=== PATIENT | female | born 1960 | race Caucasian/White ===

== ENCOUNTER → 2016-08-09 | Outpatient (REF) | payer BC, MEDICAID ==
[~2016-08-09] MED LIST: ACET30TAB PO
== END ==
LOC: M SMT 17:03
PROVIDERS: ATTEND Specialist
DX: R31.9 Hematuria, unspecified (principal)

== ENCOUNTER → 2016-10-25 | Outpatient (CLI) | payer BC, MEDICAID, OTHER ==
--- NOTE | 2016-10-25 11:19 | REP ---
CERVICAL SPINE, EIGHT VIEWS: HISTORY: Radiculopathy. There is no acute fracture or subluxation. The C4-5 through C6-7 intervertebral discs are decreased in height consistent with disc degeneration. Osteophytes are present on C4-7. There is narrowing of the C5 and 6 neural foramina secondary to uncinate process hypertrophy. There is loss of the normal lordotic curve. IMPRESSION: Degenerative change as described above. Signed by Ulices Santillan MD 10/25/2016 11:24 A
--- NOTE | 2016-10-25 11:21 | REP ---
Chest two views HISTORY: Abnormal EKG Comparison: 12/04/2012 A small ill-defined parenchymal density is present in the left lower lobe. The right lung is clear. The heart is normal in size. The pulmonary vasculature is normal in appearance. There are old right rib fractures. Degenerative changes present in the thoracic spine. IMPRESSION: There is a small ill-defined parenchymal density in the left lower lobe. This may represent a calcified granuloma, however , CT of the chest is recommended for further evaluation. Signed by Ulices Santillan MD 10/25/2016 11:12 A
--- NOTE | 2016-10-25 11:29 | REP ---
BILATERAL HIPS, PELVIS, FIVE VIEWS: HISTORY: Left hip pain. There is no acute fracture or dislocation. There is narrowing of the joint spaces with associated sclerosis. IMPRESSION: Degenerative change as described above. Signed by Ulices Santillan MD 10/25/2016 11:30 A
== END ==
LOC: M LRY 09:25
PROVIDERS: ATTEND Family Medicine
DX: M54.12 Radiculopathy, cervical region (principal); M25.552 Pain in left hip; M54.5 Low back pain

== ENCOUNTER → 2016-10-25 | Outpatient (REF) | payer BC, MEDICAID, OTHER | LOC: M SMT 17:11 | PROVIDERS: ATTEND Specialist | DX: Z85.51 Personal history of malignant neoplasm of bladder (principal) ==

== ENCOUNTER → 2016-11-23 | Outpatient (REF) | payer OTHER ==
[2016-11-23 13:23] LABS: FREE T4 1.69 NG/DL (0.76-1.46)
== END ==
LOC: M SFHCLERA 09:17
PROVIDERS: ATTEND Family Medicine
DX: E03.9 Hypothyroidism, unspecified (principal)

== ENCOUNTER → 2016-11-24 | Outpatient (CLI) | payer OTHER ==
--- NOTE | 2016-11-24 09:25 | REP ---
MR CERVICAL SPINE WITHOUT CONTRAST: HISTORY: Neck pain. A disc bulge with associated osteophyte formation is present at the C4-5 level. There is moderate effacement of the thecal sac without spinal cord compression. Bilateral uncinate process hypertrophy is present. This produces moderate narrowing of the C4 neural foramina. A disc bugle with associated osteophyte formation is present at the C5-6 level. There is minimal spinal cord compression. Bilateral uncinate process hypertrophy is present. This produces severe narrowing of the C5 neural foramina. A disc bulge with associated osteophyte formation is present at the C6-7 level. There is minimal spinal cord compression. Bilateral uncinate process hypertrophy is present. This produces moderate narrowing of the C6 neural foramina. A disc bulge and small central disc protrusion are present at the C7-T1 level. There is minimal effacement of the thecal sac without spinal cord compression. The C7 neural foramina are patent. There is no other disc bugle or herniation. The remaining neural foramina are patent. The spinal cord is normal in signal intensity. The C4-5 through C6-7 intervertebral discs are decreased in height consistent with disc degeneration. Normal signal intensity is present in the cervical vertebral bodies. IMPRESSION: There is cervical spondylosis at the C4-5 through C7-T1 levels most significant at the C5-6 and C6-7 levels where there is minimal spinal cord compression. Signed by Ulices Santillan MD 11/24/2016 09:31 A
--- NOTE | 2016-11-24 09:54 | REP ---
MR LUMBAR SPINE WITHOUT CONTRAST: HISTORY: Back pain. Decreased signal intensity on T2-weighted images is present in the L3-4 through L5-S1 intervertebral discs. The discs are decreased in height. These findings are consistent with disc degeneration. There is no disc bulge or herniation at the L1-2 level. The L1 nerves exit the neural foramina without compression. A diffuse disc bulge is present at the L2-3 level. There is hypertrophy of the ligamenta flava and posterior articulating facets. These findings produce minimal central canal stenosis. The L2 nerves exit the neural foramina without compression. A diffuse disc bulge is present at the L3-4 level. There is hypertrophy of the ligamenta flava and posterior articulating facets. These findings produce moderate central canal stenosis. The L3 nerves exit the neural foramina without compression. A diffuse disc bulge is present at the L4-5 level. There is hypertrophy of the ligamenta flava and posterior articulating facets. These findings produce moderate central canal stenosis. The L4 nerves exit the neural foramina without compression. A diffuse disc bugle is present at the L5-S1 level. There is minimal compression of the thecal sac. There is hypertrophy of the posterior articulating facets. There is compression of the left L5 nerve in the neural foramen. The right L5 nerve exits the neural foramen without compression. The conus medullaris is normal in appearance terminating at the level of the L1-2 intervertebral disc. Increased signal intensity on T2-weighted images is present in the endplates of the L3 and 4 vertebral bodies. This represents degenerative change. IMPRESSION: 1. Minimal central canal stenosis at the L2-3 level secondary to disc bulge, ligamentous, and facet hypertrophy. 2. Moderate central canal stenosis at the L3-4 and L4-5 levels secondary to disc bulge, ligamentous, and facet hypertrophy. 3. Diffuse disc bugle at the L5-S1 level with minimal thecal sac compression. There is compression of the left L5 nerve in the neural foramen. Signed by Ulices Santillan MD 11/24/2016 09:55 A
== END ==
LOC: M RAD 06:48
PROVIDERS: ATTEND Pain Medicine Interventional Pain Medicine
DX: M46.1 Sacroiliitis, not elsewhere classified (principal); M79.1 Myalgia; M54.16 Radiculopathy, lumbar region; M47.816 Spondylosis without myelopathy or radiculopathy, lumbar region; M51.37 Other intervertebral disc degeneration, lumbosacral region; M51.26 Other intervertebral disc displacement, lumbar region; M54.12 Radiculopathy, cervical region; M47.812 Spondylosis without myelopathy or radiculopathy, cervical region; M50.320 Other cervical disc degeneration, mid-cervical region, unspecified level

== ENCOUNTER → 2016-12-29 | Outpatient (CLI) | payer OTHER ==
[~2016-12-29] MED LIST changes: +AMIT10TA PO; +CHLO125TA PO; +ETOD400T PO; +GABA600T PO; +LEVO50TA5 PO; +SIMV10TA2 PO; +TIZA4CAP3 PO
[2016-12-29 12:01] LABS: BASO % 0.6 % (0.0-1.0); EOS # 0.1 K/mm3 (0.0-0.50); LARGE UNSTAINED CELL # 0.2 K/mm3 (0.0-0.4); LARGE UNSTAINED CELL % 2.4 % (0.0-4.0); LYMPH % 25.9 % (24.0-44.0); MEAN CORPUSCULAR HEMOGLOBIN 30.7 pg (27.0-33.0); MEAN CORPUSCULAR HGB CONC 32.8 g/dl (32.0-36.5); MEAN CORPUSCULAR VOLUME 93.6 fl (80.0-96.0); MONO # 0.4 K/mm3 (0.0-0.8); MONO % 6.3 % (0.0-5.0); NEUTROPHILS # 4.5 K/mm3 (1.8-7.7); NEUTROPHILS % 63.8 % (36.0-66.0); PLATELET COUNT, AUTOMATED 145 k/mm3 (150-450); RED CELL DISTRIBUTION WIDTH 13.4 % (11.5-14.5)
[2016-12-29 12:15] LABS: FOLATE 10.9 NG/ML; VITAMIN B12 LEVEL 672 PG/ML
[2016-12-29 12:18] LABS: ALBUMIN 3.3 GM/DL (3.2-5.2); ALBUMIN/GLOBULIN RATIO 0.75 (1.00-1.93); ALKALINE PHOSPHATASE 95 U/L (45-117); ALT/SGPT 31 U/L (12-78); ANION GAP 10 MEQ/L (8-16); AST/SGOT 23 U/L (15-37); BILIRUBIN,TOTAL 0.5 MG/DL (0.2-1.0); BLOOD UREA NITROGEN 13 MG/DL (7-18); CALCIUM LEVEL 9.1 MG/DL (8.5-10.1); CARBON DIOXIDE LEVEL 29 MEQ/L (21-32); CHLORIDE LEVEL 101 MEQ/L (98-107); CREATININE FOR GFR 0.67 MG/DL (0.55-1.02); GLOMERULAR FILTRATION RATE > 60.0 (>51); GLUCOSE, FASTING 103 MG/DL (70-105); POTASSIUM SERUM 3.8 MEQ/L (3.5-5.1); SODIUM LEVEL 140 MEQ/L (136-145); TOTAL PROTEIN 7.7 GM/DL (6.4-8.2)
[2016-12-29 13:20] LABS: ERYTHROCYTE SEDIMENTATION RATE 5 mm/hr (0-30)
[2016-12-31 00:15] LABS: Lyme Disease IgG/IgM Antibodie <0.91 ISR (0.00-0.90); Lyme Disease IgM Ab Quantitati <0.80 index (0.00-0.79)
[2017-01-01 13:35] LABS: ALBUMIN 4.13 GM/DL (3.29-5.55); ALBUMIN % 53.6 % (55.8-66.1); GAMMA GLOBULIN % 15.7 % (11.1-18.8)
[2017-01-02 08:08] LABS: VITAMIN E LEVEL 11.6 mg/L (5.3-16.8)
== END ==
LOC: M LRY 08:11
PROVIDERS: ATTEND Psychiatry & Neurology Neurology
DX: G62.9 Polyneuropathy, unspecified (principal)

== ENCOUNTER → 2016-12-29 | Outpatient (CLI) | payer OTHER | LOC: M LRY 08:01 | PROVIDERS: ATTEND Psychiatry & Neurology Neurology | DX: Z53.9 Procedure and treatment not carried out, unspecified reason (principal) ==

== ENCOUNTER → 2017-02-02 | Outpatient (REF) | payer OTHER | LOC: M SMT 17:13 | PROVIDERS: ATTEND Specialist | DX: C67.9 Malignant neoplasm of bladder, unspecified (principal) ==

== ENCOUNTER → 2017-03-13 | Outpatient (CLI) | payer OTHER ==
--- NOTE | 2017-03-15 09:13 | DEXA ---
AP SPINE L1 - L4 1.469 2.0 3.0 LT FEMUR TOTAL 0.917 -0.7 0.0 RT FEMUR TOTAL 0.962 -0.4 0.4 TOTAL BODY TOTAL OTHER DUAL FEMUR FRAX* ASSESSMENT Risk factors: Not done 10 year probability of fracture Major osteoporotic fracture % Hip fracture % COMMENTS: Normal bone densitometry of the spine. Normal bone densitometry of the right hip. There is low bone density of the left hip. FOLLOW-UP: Recommendation for the next bone density exam: 2 years. ROD
== END ==
LOC: M WHC 12:44
PROVIDERS: ATTEND Neurological Surgery
DX: M81.0 Age-related osteoporosis without current pathological fracture (principal)

== ENCOUNTER → 2017-04-10 | Outpatient (CLI) | payer OTHER ==
[2017-04-10 09:49] LABS: INR 0.82
[2017-04-10 09:51] LABS: BASO % 0.6 % (0.0-1.0); EOS # 0.1 10^3/uL (0.0-0.50); EOS % 1.2 % (0.0-3.0); IMMATURE GRANULOCYTE % 0.6 % (0-0); LYMPH # 1.8 10^3/uL (1.5-4.5); LYMPH % 25.6 % (24.0-44.0); MEAN CORPUSCULAR HEMOGLOBIN 31.3 pg (27.0-33.0); MEAN CORPUSCULAR HGB CONC 33.3 g/dl (32.0-36.5); MEAN CORPUSCULAR VOLUME 93.8 fl (80.0-96.0); MONO # 0.6 10^3/uL (0.0-0.8); MONO % 8.6 % (0.0-5.0); NEUTROPHILS # 4.4 10^3/uL (1.8-7.7); NEUTROPHILS % 63.4 % (36.0-66.0); PLATELET COUNT, AUTOMATED 109 10^3/uL (150-450); RED CELL DISTRIBUTION WIDTH 14.5 % (11.5-14.5); WHITE BLOOD COUNT 6.9 10^3/uL (4.0-10.0)
[2017-04-10 10:06] LABS: PLT CLUMPS? POS FLAG; POS COUNT POS FLAG
[2017-04-10 10:18] LABS: ALBUMIN 3.2 GM/DL (3.2-5.2); ALBUMIN/GLOBULIN RATIO 0.82 (1.00-1.93); ALKALINE PHOSPHATASE 86 U/L (45-117); ALT/SGPT 24 U/L (12-78); ANION GAP 7 MEQ/L (8-16); AST/SGOT 24 U/L (15-37); BILIRUBIN,TOTAL 0.4 MG/DL (0.2-1.0); BLOOD UREA NITROGEN 14 MG/DL (7-18); CALCIUM LEVEL 9.3 MG/DL (8.5-10.1); CARBON DIOXIDE LEVEL 28 MEQ/L (21-32); CHLORIDE LEVEL 104 MEQ/L (98-107); CREATININE FOR GFR 0.67 MG/DL (0.55-1.02); GLOMERULAR FILTRATION RATE > 60.0 (>51); GLUCOSE, FASTING 103 MG/DL (70-105); POTASSIUM SERUM 3.7 MEQ/L (3.5-5.1); SODIUM LEVEL 139 MEQ/L (136-145); TOTAL PROTEIN 7.1 GM/DL (6.4-8.2)
--- NOTE | 2017-04-11 05:27 | REP ---
Clinical: Chest pain. Obesity . Comparison: None . Technique: PA and lateral. Findings: The mediastinum and cardiac silhouette are normal. The lung bravo are clear and without acute consolidation, effusion, or pneumothorax. The skeletal structures are intact and normal. Impression: 1. No acute cardiopulmonary process. Signed by Goran Vazquez MD 04/11/2017 05:18 A
--- NOTE | 2017-04-11 16:08 | ECGEPIP ---
Stationary ECG Study [facility] Test Date: 2017-04-10 Pat Name: DOMENIC BLEVINS Department: Room: - Gender: F [employer] Operator: [facility] : 1960 Requested By: JOSE Celestin Order Number: [id number] Reading MD: Tacos Rod Measurements Intervals [place] Rate: 74 P: -37 OK: 187 QRS: 22 QRSD: 102 T: 39 QT: 416 QTc: 463 Interpretive Statements SINUS RHYTHM Poor R-wave progression, otherwise within normal limits. No prior ECG available for comparison at the time of interpretation. Electronically Signed On 04-11-2017 16:08:04 EDT by Tacos Rod
== END ==
LOC: M LAB 08:06
PROVIDERS: ATTEND Neurological Surgery
DX: E66.9 Obesity, unspecified (principal)